=== PATIENT | male | born 1960 | race Two or more races ===

== ENCOUNTER 2021-01-18 12:33 | Inpatient (IN) | payer SELFPAY ==
[~2021-01-18] VITALS: Ht 188 cm; Wt 90.4 kg
[2021-01-18] MEDS ORDERED: methylPREDNISolone SOD SUCC 125 MG/2 ML VL IV ONE (12:45)
[2021-01-18 13:30] LABS: Calcium 8.6 mg/dL (8.5-10.1); Potassium 3.5 mmol/L (3.5-5.1)
[2021-01-18 13:38] LABS: BUN/Creatinine Ratio 18.1; Bilirubin, Total 0.6 mg/dL (0.2-1.0); CRP High Sensitivity 2.85 mg/dL (< 0.3); Total Protein 7.1 g/dL (6.4-8.2)
[2021-01-18 13:48] LABS: Basophils # (auto) 0 10 ^3/uL (0-0.2); Basophils % (auto) 0.3 % (0.0-2.0); Eosinophils # (auto) 0 10 ^3/uL (0-0.8); Eosinophils % (auto) 0.1 % (0.0-7.0); Hematocrit 41.4 % (41.0-53.0); Hemoglobin 14.3 g/dL (13.5-17.5); Lymphocytes # (auto) 0.8 10 ^3/uL (0.4-5.4); Lymphocytes % (auto) 13.6 % (10.0-50.0); Mean Corpuscular Hemoglobin 30.3 pg (28.0-32.0); Mean Corpuscular Hgb Conc. 34.5 g/dL (32.0-36.0); Mean Corpuscular Volume 87.9 fL (80.0-100.0); Monocytes # (auto) 0.5 10 ^3/uL (0-1.3); Monocytes % (auto) 8.4 % (0.0-12.0); Neutrophils # (auto) 4.6 10 ^3/uL (1.6-8.6); Neutrophils % (auto) 77.6 % (37.0-80.0); Red Cell Distribution Width 14.2 % (11.8-14.3); White Blood Cell 5.9 10^3/uL (4.4-10.8)
[2021-01-19] VITALS (7 sets, daily range): BP systolic 111–136; BP diastolic 64–73
[2021-01-19] MEDS ORDERED: TEMAZEPAM 15 MG CAP PO PRN (00:45)
[2021-01-19] MEDS ORDERED: NITROGLYCERIN 0.4 MG SL TAB SL PRN (00:45)
[2021-01-19] MEDS ORDERED: MORPHINE SULFATE INJECTION 2 MG/ML SYRG IV PRN (00:45)
[2021-01-19] MEDS ORDERED: ACETAMINOPHEN 500 MG TAB PO PRN (00:45)
[2021-01-19] MEDS ORDERED: ONDANSETRON HCL 4 MG/2 ML VIAL IV PRN (00:45)
[2021-01-19] MEDS: AZITHROMYCIN 500MG/ 250ML 250 ML IV SCH ×2 (02:14→21:09)
[2021-01-19] MEDS ORDERED: LISI-716 PO (02:31)
[2021-01-19] MEDS ORDERED: METH4TAB (02:34)
[2021-01-19] MEDS ORDERED: AZIT250T9 PO (02:34)
[2021-01-19] MEDS ORDERED: TURM500C3 OR (02:34)
[2021-01-19] MEDS ORDERED: GABA-339 PO (02:34)
[2021-01-19] MEDS ORDERED: MELO1TAB73 PO (02:34)
[2021-01-19] MEDS: DexAMETHasone SOD PHOS 10MG/1ML VIAL INJ IV SCH (11:08)
[2021-01-19] MEDS: ZINC SULFATE 220mg CAP or TAB PO SCH (11:10)
[2021-01-19] MEDS: PANTOPRAZOLE 40 MG TAB PO SCH (11:12)
[2021-01-19] MEDS: CHOLECALCIFEROL (VITD3) 2,000 UNIT CAP/TAB PO SCH (11:12)
[2021-01-19] MEDS: ASCORBIC ACID 1,000 MG TAB PO SCH (11:12)
[2021-01-19] MEDS: ENOXAPARIN SOD 40 MG/0.4 ML SYRINGE SC SCH ×2 (11:13→20:55)
[2021-01-19] MEDS ORDERED: REMDESIVIR PER PHARMACY 0 ML IV SCH (14:15)
[2021-01-19] MEDS ORDERED: REMDESIVIR 200 MG in NS 210ml LOADING DOSE ADULT IV ONE (16:00)
[2021-01-20 05:00] VITALS: BP 118/71
[2021-01-20 06:03] LABS: Basophils # (auto) 0 10 ^3/uL (0-0.2); Basophils % (auto) 0.3 % (0.0-2.0); Eosinophils # (auto) 0 10 ^3/uL (0-0.8); Hematocrit 40.2 % (41.0-53.0); Hemoglobin 13.9 g/dL (13.5-17.5); Lymphocytes # (auto) 1.2 10 ^3/uL (0.4-5.4); Lymphocytes % (auto) 21.5 % (10.0-50.0); Mean Corpuscular Hemoglobin 30.2 pg (28.0-32.0); Mean Corpuscular Hgb Conc. 34.6 g/dL (32.0-36.0); Mean Corpuscular Volume 87.3 fL (80.0-100.0); Monocytes # (auto) 0.6 10 ^3/uL (0-1.3); Monocytes % (auto) 10.3 % (0.0-12.0); Neutrophils # (auto) 3.7 10 ^3/uL (1.6-8.6); Neutrophils % (auto) 67.9 % (37.0-80.0); Nucleated Red Blood Cells % 0.1 %; Red Cell Distribution Width 14.2 % (11.8-14.3); White Blood Cell 5.4 10^3/uL (4.4-10.8)
[2021-01-20 06:25] LABS: Albumin 2.6 g/dL (3.4-5.0); Calcium 8.4 mg/dL (8.5-10.1); Potassium 3.9 mmol/L (3.5-5.1)
[2021-01-20 06:29] LABS: BUN/Creatinine Ratio 28.6; Bilirubin, Total 0.4 mg/dL (0.2-1.0); Total Protein 6.4 g/dL (6.4-8.2)
[2021-01-20 09:00] VITALS: BP 109/62
[2021-01-20 10:06] LABS: Urine Bacteria NONE SEEN /hpf (None Seen); Urine Blood Negative /uL (Negative); Urine Mucus FEW (None Seen); Urine Specific Gravity 1.032 (1.001-1.035); Urine WBC 6 /hpf (0 - 3)
[2021-01-20] MEDS: ZINC SULFATE 220mg CAP or TAB PO SCH (10:28)
[2021-01-20] MEDS: DexAMETHasone SOD PHOS 10MG/1ML VIAL INJ IV SCH (10:28)
[2021-01-20] MEDS: ENOXAPARIN SOD 40 MG/0.4 ML SYRINGE SC SCH ×2 (10:29→21:47)
[2021-01-20] MEDS: ASCORBIC ACID 1,000 MG TAB PO SCH (10:29)
[2021-01-20] MEDS: PANTOPRAZOLE 40 MG TAB PO SCH (10:29)
[2021-01-20] MEDS: CHOLECALCIFEROL (VITD3) 2,000 UNIT CAP/TAB PO SCH (10:29)
[2021-01-20] MEDS: LORazepam 0.5 MG TAB PO PRN (10:30)
[2021-01-20 13:29] VITALS: BP 114/64
[2021-01-20] MEDS ORDERED: PROMETHAZINE W/CODEINE 5 ML ORAL SYRUP PO PRN (14:00)
[2021-01-20] MEDS: REMDESIVIR 100mg 100 MG in SODIUM CHL 0.9% 230 ML IV SCH (15:57)
[2021-01-20 17:15] VITALS: BP 109/60
[2021-01-20] MEDS: AZITHROMYCIN 500MG/ 250ML 250 ML IV SCH (21:47)
[2021-01-20 22:28] VITALS: BP 107/66
[2021-01-20] MEDS: ALBUTEROL SULF HFA 90MCG INH 200DOSE IN PRN (22:48)
[2021-01-21 05:25] VITALS: BP 114/63
[2021-01-21 07:06] LABS: Albumin 2.7 g/dL (3.4-5.0); Bilirubin, Total 0.5 mg/dL (0.2-1.0); Calcium 8.4 mg/dL (8.5-10.1); Total Protein 6.3 g/dL (6.4-8.2)
[2021-01-21] MEDS: ALBUTEROL SULF HFA 90MCG INH 200DOSE IN PRN ×2 (08:30→21:24)
[2021-01-21 09:00] VITALS: BP 108/55
[2021-01-21] MEDS: DexAMETHasone SOD PHOS 10MG/1ML VIAL INJ IV SCH (10:30)
[2021-01-21] MEDS: ENOXAPARIN SOD 40 MG/0.4 ML SYRINGE SC SCH ×2 (10:31→22:13)
[2021-01-21] MEDS: ZINC SULFATE 220mg CAP or TAB PO SCH (10:31)
[2021-01-21] MEDS: ASCORBIC ACID 1,000 MG TAB PO SCH (10:32)
[2021-01-21] MEDS: CHOLECALCIFEROL (VITD3) 2,000 UNIT CAP/TAB PO SCH (10:32)
[2021-01-21] MEDS: PANTOPRAZOLE 40 MG TAB PO SCH (10:32)
[2021-01-21] MEDS: LORazepam 0.5 MG TAB PO PRN ×2 (10:33→22:14)
[2021-01-21 13:00] VITALS: BP 117/67
[2021-01-21] MEDS: REMDESIVIR 100mg 100 MG in SODIUM CHL 0.9% 230 ML IV SCH (16:02)
[2021-01-21 17:00] VITALS: BP 105/46
[2021-01-21 22:00] VITALS: BP 107/62
[2021-01-21] MEDS: AZITHROMYCIN 500MG/ 250ML 250 ML IV SCH (22:13)
[2021-01-22 05:00] VITALS: BP 114/65
[2021-01-22 07:23] LABS: Potassium 4.3 mmol/L (3.5-5.1)
[2021-01-22] MEDS: ALBUTEROL SULF HFA 90MCG INH 200DOSE IN PRN (07:32)
[2021-01-22 07:34] LABS: Albumin 2.6 g/dL (3.4-5.0); Bilirubin, Total 0.5 mg/dL (0.2-1.0); Calcium 8.6 mg/dL (8.5-10.1); Total Protein 6.4 g/dL (6.4-8.2)
[2021-01-22 09:00] VITALS: BP 103/63
[2021-01-22] MEDS: CHOLECALCIFEROL (VITD3) 2,000 UNIT CAP/TAB PO SCH (09:49)
[2021-01-22] MEDS: PANTOPRAZOLE 40 MG TAB PO SCH (09:49)
[2021-01-22] MEDS: ZINC SULFATE 220mg CAP or TAB PO SCH (09:49)
[2021-01-22] MEDS: DexAMETHasone SOD PHOS 10MG/1ML VIAL INJ IV SCH (09:49)
[2021-01-22] MEDS: ASCORBIC ACID 1,000 MG TAB PO SCH (09:49)
[2021-01-22] MEDS: ENOXAPARIN SOD 40 MG/0.4 ML SYRINGE SC SCH (09:50)
[2021-01-22] MEDS: LORazepam 0.5 MG TAB PO PRN (09:57)
[2021-01-22 11:46] VITALS: BP 103/63
[2021-01-22 12:45] VITALS: BP 105/61
[2021-01-22] MEDS: REMDESIVIR 100mg 100 MG in SODIUM CHL 0.9% 230 ML IV SCH (12:51)
[2021-01-22 13:00] VITALS: BP 111/63
== END 2021-01-22 16:00 | disposition home or self-care (01) | DRG 871 ==
LOC: ER 12:33 → TELE 01-19 00:37 → TELE-EAST 01-19 02:01
PROVIDERS: ADMIT Nurse Practitioner; ATTEND Internal Medicine
PROC: XW033E5 Introduction of Remdesivir Anti-infective into Peripheral Vein, Percutaneous Approach, New Technology Group 5 (ICD-10-PCS; principal; 2021-01-19)
DX: A41.89 Other specified sepsis (principal); U07.1 COVID-19; J12.82 Pneumonia due to coronavirus disease 2019; J96.01 Acute respiratory failure with hypoxia; I10 Essential (primary) hypertension; D89.839 Cytokine release syndrome, grade unspecified; Z79.82 Long term (current) use of aspirin
CPT/HCPCS: 36415; 71045; 80053; 81001; 82728; 83735; 85025; 85379; 86141; 87426; 93005; 94640; 96374; G0378; J1100